=== PATIENT | male | born 1950 | race Caucasian/White ===

== ENCOUNTER 2023-03-14 20:10 | Outpatient (CLI) | payer OTHER | END 2023-03-14 20:11 | disposition left against medical advice (07) | LOC: EMS 20:10 | DX: Z04.1 Encounter for examination and observation following transport accident (principal) ==

== ENCOUNTER 2023-03-17 10:45 | Outpatient (CLI) | payer OTHER ==
--- NOTE | 2023-03-17 11:18 | XRAY Report ---
PROCEDURE: Cervical Spine 2 View INDICATIONS: WHIPLASH INJURY TO NECK TECHNIQUE: 3 views of the cervical spine were obtained. COMPARISON: None FINDINGS: Bones: Vertebral body height and alignment is maintained. Normal bone mineralization and cranioverteb ral relationships present. Large fused flowing anterior osteophyte extends from C4 inferiorly into the thoracic spine with relat deyanira preservation of the disc spaces. Hypertrophic facet joints of noted throughout the exam Flexion and extension imaging shows no evidence of segmental instability. Soft tissues: No prevertebral soft tissue swelling. IMPRESSION: Large fused anterior osteophyte present mid to lower cervical spine consistent with diffuse hepatic s keletal hyperostosis. Multilevel facet arthropathy throughout the exam. No evidence of segmental instability. Reviewed by: Paddy Joe MD on 03/17/2023 10:17 AM [facility] Approved by: Paddy Joe MD on 03/17/2023 10:17 AM [facility] Station ID: [id number]
== END 2023-03-17 10:46 | disposition home or self-care (01) ==
LOC: DI.S 10:45
PROVIDERS: ATTEND Nurse Practitioner Family
DX: M47.812 Spondylosis without myelopathy or radiculopathy, cervical region (principal); M25.78 Osteophyte, vertebrae

== ENCOUNTER 2023-03-24 10:48 | Outpatient (CLI) | payer BC, OTHER | END 2023-03-24 10:49 | disposition home or self-care (01) | LOC: DI.S 10:48 | PROVIDERS: ATTEND Nurse Practitioner Family | DX: Z53.9 Procedure and treatment not carried out, unspecified reason (principal) ==

== ENCOUNTER 2023-03-26 12:46 | Outpatient (CLI) | payer BC ==
--- NOTE | 2023-03-26 19:35 | XRAY Report ---
PROCEDURE: Lumbar Spine 2 View INDICATIONS: LOW BACK PAIN TECHNIQUE: 3 views of the lumbar spine were acquired. COMPARISON: None. FINDINGS: Bones: 5 [id number]-kingapa vertebrae are present. Multilevel anterior osteophytes with preservation o f the disc spaces. Moderate multilevel degenerative changes of the spine with multilevel disc height loss and facet arthropathy. Ankylosis of the bilateral SI joints and partially visualized pubic symph ysis. There is normal bony alignment. No vertebral body compression fractures. No suspicious bony l esions. Soft tissues: Overlying bowel gas pattern is normal. No suspicious soft tissue calcifications. IMPRESSION: 1.No acute fracture or traumatic subluxation. 2.Findings suggestive of ankylosing spondylitis in the lumbar spine, bilateral SI joints and pubic sy mphysis. Consider a dedicated pelvis radiograph for further evaluation. 3.Moderate multilevel degenerative changes of the spine. Reviewed by: Stef Morales MD on 03/26/2023 7:34 PM PST Approved by: Stef Morales MD on 03/26/2023 7:34 PM PST Station ID: [id number]
== END 2023-03-26 23:59 | disposition home or self-care (01) ==
LOC: DI.S 12:46
PROVIDERS: ATTEND Nurse Practitioner Family
DX: M47.816 Spondylosis without myelopathy or radiculopathy, lumbar region (principal)